=== PATIENT | male | born 1950 | race Caucasian/White ===

== ENCOUNTER → 2020-07-25 10:54 | Outpatient (BNVA) | payer MEDICARE, OTHER, SELFPAY | PROVIDERS: PCP Internal Medicine; Visit Provider Hospitalist | DX: G12.21 Amyotrophic lateral sclerosis (principal); J96.10 Chronic respiratory failure, unspecified whether with hypoxia or hypercapnia; J98.4 Other disorders of lung; G70.9 Myoneural disorder, unspecified | CPT/HCPCS: 99212 ==

== ENCOUNTER 2020-09-12 06:13 | Outpatient (REF) | payer MEDICARE, OTHER, SELFPAY ==
[2020-09-12 07:06] LABS: MANUAL DIFF FLAG NO
[2020-09-12 07:11] LABS: Basophils Absolute Auto 0.1 X10*3/uL (0.0-0.2); Basophils Percent Auto 0.6 % (0-2); Hemoglobin 13.7 g/dl (14.0-18.0); Imm Gran Abs Auto 0.04 X10*3/uL (0.00-0.03); Imm Gran Pct Auto 0.4 % (0.0-0.4); Lymphocytes Absolute Auto 2.5 X10*3/uL (1.2-4.9); Lymphocytes Percent Auto 25.8 % (20-40); Mean Corpuscular HGB Conc 31.1 g/dl (31.0-36.0); Mean Corpuscular Hemoglobin 29.5 pg (27.0-33.0); Mean Corpuscular Volume 94.8 fL (80-98); Mean Platelet Volume 10.3 fL (9.4-12.4); Monocytes Percent Auto 10.7 % (2-11); Neutrophils Absolute Auto 6.1 X10*3/uL (2.0-8.3); Neutrophils Percent Auto 62.5 % (45-73); Platelet Count 296 X10*3/uL (160-400); Red Blood Count 4.64 X10*6/uL (4.60-5.80); Red Cell Distribution Width 13.7 % (11.0-16.0); White Blood Count 9.7 X10*3/uL (4.8-10.8)
[2020-09-12 07:16] LABS: Glucose Urine UA NEG (NEG); Leukocyte Esterase Urine NEG (NEG); Nitrite Urine NEG (NEG); PH 5.5 (5.0-8.0); Specific Gravity - Urine 1.025 (1.005-1.025); Urine Blood NEG (NEG); Urine Ketones NEG (NEG); Urine Protein NEG (NEG-TRACE)
[2020-09-12 07:19] LABS: Appearance Urine CLEAR; Color Urine YELLOW
[2020-09-12 07:27] LABS: Mucus Urine 2+ /LPF; RBC Urine 0 /HPF (0); Squamous Epithelial Cell Urine 1+ /LPF; WBC Urine 0 /HPF (0-4)
[2020-09-12 07:28] LABS: Alanine Aminotransferase 28 U/L (0-40); Albumin Level 4.3 g/dL (3.5-5.0); Alkaline Phosphatase 80 U/L (39-117); Anion Gap 14 (12-20); Aspartate Amino Transferase 19 U/L (5-37); Blood Urea Nitrogen 14 mg/dL (9-16); Calcium 9.2 mg/dL (8.4-10.2); Carbon Dioxide 28 mmol/L (22-29); Chloride 103 mmol/L (96-108); Cholesterol 127 mg/dL; Estimated Glomerular Filt Rate > 60; Glucose Fasting 108 mg/dL (60-99); HDL Cholesterol 35 mg/dL; LDL Cholesterol Calculated 61 mg/dl; Potassium 4.4 mmol/l (3.3-5.1); Sodium 141 mmol/L (135-145); Total Protein 7.3 g/dL (6.5-8.0); Triglycerides 158 mg/dL
[2020-09-12 07:33] LABS: Creatinine Urine 85.75 mg/dL; Microalbum/Creatinine Ratio Ur 10.4 ug/mg cr
[2020-09-12 07:50] LABS: TSH reflex Free T4 2.06 mIU/mL (0.32-4.0)
[2020-09-12 07:54] LABS: Estimated Average Glucose 120 mg/dL; Hemoglobin A1c % 5.8 %
== END 2020-09-12 06:14 | disposition home or self-care (01) ==
LOC: HO.LAB 06:13
PROVIDERS: Visit Provider Internal Medicine
DX: E11.9 Type 2 diabetes mellitus without complications (principal); I10 Essential (primary) hypertension; E78.5 Hyperlipidemia, unspecified; I25.10 Atherosclerotic heart disease of native coronary artery without angina pectoris; G12.21 Amyotrophic lateral sclerosis; E66.9 Obesity, unspecified
CPT/HCPCS: 36415; 80053; 80061; 81001; 82043; 83036; 84443; 85025

== ENCOUNTER 2020-10-14 08:38 | Outpatient (REF) | payer MEDICARE, OTHER, SELFPAY ==
[2020-10-14 09:21] VITALS: O2SAT 95
[2020-10-14 09:26] LABS: Pt Ventilation O2% ROOM AIR
[2020-10-14 09:30] LABS: ABG PCO2 39 mmHg (32-45); Base Excess ABG -0.1; HCO3 ABG 24 mmol/L (22-26); PO2 ABG 75 mmHg (83-108)
--- NOTE | 2020-10-14 17:41 | PFT_ITS ---
Forced vital capacity and FEV1 are both moderately reduced. FDH48-28 is normal. MVV moderately reduced. Post bronchodilator therapy, there is no significant change. Total lung capacity and residual volume are both moderately reduced. Diffusion capacity is markedly decreased. CONCLUSION: There is no evidence of any significant obstructive airway disorder. There is evidence for moderately severe restrictive pulmonary disorder. Clinical correlation is recommended. MD ADELAIDE Lainez/MODL / [phone]
== END 2020-10-14 08:39 | disposition home or self-care (01) ==
LOC: HO.RESP 08:38
PROVIDERS: PCP Internal Medicine; Visit Provider Hospitalist
DX: J43.2 Centrilobular emphysema (principal); G12.21 Amyotrophic lateral sclerosis; J96.11 Chronic respiratory failure with hypoxia; J98.4 Other disorders of lung; G70.9 Myoneural disorder, unspecified
CPT/HCPCS: 36600; 82803; 94060; 94727; 94729; 99212

== ENCOUNTER → 2021-01-05 09:37 | Outpatient (BNVA) | payer MEDICARE, OTHER, SELFPAY | PROVIDERS: PCP Internal Medicine; Visit Provider Hospitalist | DX: G12.21 Amyotrophic lateral sclerosis (principal); J96.11 Chronic respiratory failure with hypoxia; J98.4 Other disorders of lung; G70.9 Myoneural disorder, unspecified | CPT/HCPCS: 99212 ==

== ENCOUNTER 2021-01-11 08:13 | Outpatient (REF) | payer MEDICARE, OTHER, SELFPAY ==
[2021-01-11 10:13] LABS: MANUAL DIFF FLAG NO
[2021-01-11 10:19] LABS: Basophils Percent Auto 0.6 % (0-2); Hematocrit 41.5 % (42-52); Hemoglobin 13.3 g/dl (14.0-18.0); Imm Gran Abs Auto 0.03 X10*3/uL (0.00-0.03); Imm Gran Pct Auto 0.4 % (0.0-0.4); Lymphocytes Absolute Auto 1.7 X10*3/uL (1.2-4.9); Lymphocytes Percent Auto 24.1 % (20-40); Mean Corpuscular Hemoglobin 30.2 pg (27.0-33.0); Mean Corpuscular Volume 94.3 fL (80-98); Mean Platelet Volume 10.5 fL (9.4-12.4); Monocytes Absolute Auto 0.8 X10*3/uL (0.1-1.2); Monocytes Percent Auto 11.5 % (2-11); Neutrophils Absolute Auto 4.4 X10*3/uL (2.0-8.3); Neutrophils Percent Auto 63.4 % (45-73); Platelet Count 260 X10*3/uL (160-400); Red Cell Distribution Width 13.6 % (11.0-16.0)
[2021-01-11 10:27] LABS: Estimated Average Glucose 111 mg/dL; Hemoglobin A1c % 5.5 %
[2021-01-11 10:32] LABS: Rheumatoid Factor < 15.0 IU/mL (<15.0)
[2021-01-11 10:43] LABS: Alanine Aminotransferase 39 U/L (0-40); Albumin Level 4.1 g/dL (3.5-5.0); Alkaline Phosphatase 79 U/L (39-117); Anion Gap 14 (12-20); Aspartate Amino Transferase 30 U/L (5-37); Blood Urea Nitrogen 15 mg/dL (9-16); Calcium 9.1 mg/dL (8.4-10.2); Carbon Dioxide 27 mmol/L (22-29); Chloride 102 mmol/L (96-108); Cholesterol 138 mg/dL; Estimated Glomerular Filt Rate > 60; Glucose Fasting 93 mg/dL (60-99); HDL Cholesterol 33 mg/dL; LDL Cholesterol Calculated 75 mg/dl; Potassium 4.4 mmol/L (3.3-5.1); Sodium 139 mmol/L (135-145); Total Protein 7.1 g/dL (6.5-8.0); Triglycerides 150 mg/dL
[2021-01-11 10:56] LABS: TSH reflex Free T4 1.28 uIU/mL (0.32-4.0)
[2021-01-11 11:27] LABS: Microalbum/Creatinine Ratio Ur 23.6 ug/mg cr
[2021-01-11 12:14] LABS: Vitamin B12 445 pg/mL (200-900)
[2021-01-12 13:47] LABS: Anti Nuclear Antibody Screen NEGATIVE (NEGATIVE)
[2021-01-12 18:37] LABS: Prot Elec - Albumin 3.7 g/dL (3.8-4.8); Prot Elec - Alpha1 0.4 g/dL (0.2-0.3); Prot Elec - Alpha2 0.9 g/dL (0.5-0.9); Prot Elec - Beta 1 0.5 g/dL (0.4-0.6); Prot Elec - Beta 2 0.5 g/dL (0.2-0.5); Prot Elec - Gamma 0.9 g/dL (0.8-1.7); Prot Elec - Total Protein 6.9 g/dL (6.1-8.1)
[2021-01-12 20:22] LABS: IgA 396 mg/dL (70-320); IgG 941 mg/dL (600-1540); IgM 33 mg/dL (50-300)
[2021-01-14 14:17] LABS: Vitamin B6 3.7 ng/mL (2.1-21.7)
[2021-01-17 15:12] LABS: Vitamin B1 10 nmol/L (8-30)
== END 2021-01-11 08:14 | disposition home or self-care (01) ==
LOC: HO.10HDL 08:13
PROVIDERS: Psychiatry & Neurology Neurology; Visit Provider Internal Medicine
DX: E78.00 Pure hypercholesterolemia, unspecified (principal); G12.21 Amyotrophic lateral sclerosis; R20.0 Anesthesia of skin; I10 Essential (primary) hypertension; I25.10 Atherosclerotic heart disease of native coronary artery without angina pectoris; E11.42 Type 2 diabetes mellitus with diabetic polyneuropathy; E66.9 Obesity, unspecified
CPT/HCPCS: 36415; 80053; 80061; 82043; 82607; 82784; 83036; 84155; 84165; 84207; 84425; 84443; 85025; 86038; 86039; 86334; 86431

== ENCOUNTER → 2021-05-01 10:25 | Outpatient (BNVA) | payer MEDICARE, OTHER, SELFPAY | PROVIDERS: PCP Internal Medicine; Visit Provider Hospitalist | DX: G12.21 Amyotrophic lateral sclerosis (principal); J96.11 Chronic respiratory failure with hypoxia; J98.4 Other disorders of lung; G70.9 Myoneural disorder, unspecified | CPT/HCPCS: 99212 ==

== ENCOUNTER 2021-05-11 07:35 | Outpatient (REF) | payer MEDICARE, OTHER, SELFPAY ==
[2021-05-11 09:54] LABS: MANUAL DIFF FLAG NO
[2021-05-11 10:09] LABS: Estimated Average Glucose 108 mg/dL; Hemoglobin A1c % 5.4 %
[2021-05-11 10:11] LABS: Basophils Absolute Auto 0.1 X10*3/uL (0.0-0.2); Basophils Percent Auto 0.6 % (0-2); Eosinophils Absolute Auto 0.2 X10*3/uL (0.0-0.4); Hematocrit 44.2 % (42-52); Imm Gran Abs Auto 0.03 X10*3/uL (0.00-0.03); Imm Gran Pct Auto 0.4 % (0.0-0.4); Lymphocytes Absolute Auto 2.2 X10*3/uL (1.2-4.9); Lymphocytes Percent Auto 27.3 % (20-40); Mean Corpuscular HGB Conc 31.7 g/dl (31.0-36.0); Mean Corpuscular Hemoglobin 30.3 pg (27.0-33.0); Mean Corpuscular Volume 95.7 fL (80-98); Monocytes Percent Auto 12.4 % (2-11); Neutrophils Absolute Auto 4.5 X10*3/uL (2.0-8.3); Neutrophils Percent Auto 57.3 % (45-73); Platelet Count 272 X10*3/uL (160-400); Red Blood Count 4.62 X10*6/uL (4.60-5.80); Red Cell Distribution Width 13.5 % (11.0-16.0); White Blood Count 7.9 X10*3/uL (4.8-10.8)
[2021-05-11 10:33] LABS: Appearance Urine CLEAR; Color Urine YELLOW; Glucose Urine UA NEG (NEG); Leukocyte Esterase Urine NEG (NEG); Nitrite Urine NEG (NEG); Specific Gravity - Urine >= 1.030 (1.005-1.025); UACC Culture Trigger NO; Urine Blood NEG (NEG); Urine Ketones NEG (NEG); Urine Protein 1+ MG/DL (NEG-TRACE)
[2021-05-11 10:38] LABS: Alanine Aminotransferase 40 U/L (0-40); Albumin Level 4.1 g/dL (3.5-5.0); Alkaline Phosphatase 71 U/L (39-117); Anion Gap 14 (12-20); Aspartate Amino Transferase 36 U/L (5-37); Bilirubin Total 0.9 mg/dL (0.0-1.0); Blood Urea Nitrogen 13 mg/dL (9-16); Calcium 9.3 mg/dL (8.4-10.2); Carbon Dioxide 28 mmol/L (22-29); Chloride 102 mmol/L (96-108); Cholesterol 125 mg/dL; Estimated Glomerular Filt Rate > 60; Glucose Fasting 97 mg/dL (60-99); HDL Cholesterol 37 mg/dL; LDL Cholesterol Calculated 68 mg/dl; Potassium 4.3 mmol/L (3.3-5.1); Sodium 140 mmol/L (135-145); Total Protein 7.2 g/dL (6.5-8.0); Triglycerides 102 mg/dL
[2021-05-11 10:43] LABS: Creatinine Urine 142.68 mg/dL; Microalbum/Creatinine Ratio Ur 109.3 ug/mg cr
[2021-05-11 11:01] LABS: TSH reflex Free T4 1.03 uIU/mL (0.32-4.0)
[2021-05-11 11:08] LABS: Folate 5.6 ng/mL (> or = 4.0); Vitamin B12 1358 pg/mL (200-900)
[2021-05-11 11:35] LABS: Squamous Epithelial Cell Urine 2+ /LPF
[2021-05-11 11:36] LABS: Mucus Urine 3+ /LPF
== END 2021-05-11 07:36 | disposition home or self-care (01) ==
LOC: HO.10HDL 07:35
PROVIDERS: Visit Provider Internal Medicine
DX: E11.42 Type 2 diabetes mellitus with diabetic polyneuropathy (principal); I10 Essential (primary) hypertension; I25.10 Atherosclerotic heart disease of native coronary artery without angina pectoris; E78.00 Pure hypercholesterolemia, unspecified; E66.9 Obesity, unspecified
CPT/HCPCS: 36415; 80053; 80061; 81001; 81003; 82043; 82607; 82746; 83036; 84443; 85025

== ENCOUNTER → 2021-07-25 10:40 | Outpatient (BNVA) | payer MEDICARE, OTHER, SELFPAY | PROVIDERS: PCP Internal Medicine; Visit Provider Hospitalist | DX: G12.21 Amyotrophic lateral sclerosis (principal); J96.11 Chronic respiratory failure with hypoxia; J98.4 Other disorders of lung; G70.9 Myoneural disorder, unspecified | CPT/HCPCS: 99212 ==

== ENCOUNTER 2021-09-21 09:03 | Outpatient (REF) | payer MEDICARE, OTHER, SELFPAY ==
[2021-09-21 10:34] LABS: Appearance Urine HAZY; Color Urine YELLOW; Glucose Urine UA NEG (NEG); Leukocyte Esterase Urine NEG (NEG); Nitrite Urine NEG (NEG); Specific Gravity - Urine 1.025 (1.005-1.025); Urine Blood NEG (NEG); Urine Ketones NEG (NEG); Urine Protein NEG (NEG-TRACE)
[2021-09-21 10:35] LABS: MANUAL DIFF FLAG NO
[2021-09-21 10:43] LABS: Basophils Percent Auto 0.5 % (0-2); Hematocrit 44.8 % (42.0-52.0); Imm Gran Abs Auto 0.03 X10*3/uL (0.00-0.03); Imm Gran Pct Auto 0.4 % (0.0-0.4); Lymphocytes Absolute Auto 2.1 X10*3/uL (1.2-4.9); Lymphocytes Percent Auto 24.7 % (20-40); Mean Corpuscular HGB Conc 31.3 g/dl (31.0-36.0); Mean Corpuscular Hemoglobin 30.6 pg (27.0-33.0); Mean Corpuscular Volume 97.8 fL (80.0-98.0); Mean Platelet Volume 11.2 fL (9.4-12.4); Monocytes Absolute Auto 1.1 X10*3/uL (0.1-1.2); Neutrophils Absolute Auto 5.3 x10*3/uL (2.0-8.3); Neutrophils Percent Auto 61.4 % (45-73); Platelet Count 248 X10*3/uL (160-400); Red Blood Count 4.58 X10*6/uL (4.60-5.80); White Blood Count 8.6 X10*3/uL (4.8-10.8)
[2021-09-21 10:48] LABS: Estimated Average Glucose 105 mg/dL; Hemoglobin A1c % 5.3 %
[2021-09-21 11:00] LABS: Creatinine Urine 87.93 mg/dL; Microalbum/Creatinine Ratio Ur 18.1 ug/mg cr
[2021-09-21 11:11] LABS: Alanine Aminotransferase 42 U/L (0-40); Albumin Level 4.1 g/dL (3.5-5.0); Alkaline Phosphatase 70 U/L (39-117); Anion Gap 13 (12-20); Aspartate Amino Transferase 31 U/L (5-37); Bilirubin Total 0.7 mg/dL (0.0-1.0); Blood Urea Nitrogen 17 mg/dL (9-16); Calcium 9.5 mg/dL (8.4-10.2); Carbon Dioxide 29 mmol/L (22-29); Chloride 105 mmol/L (96-108); Cholesterol 121 mg/dL; Estimated Glomerular Filt Rate > 60; Glucose Fasting 87 mg/dL (60-99); HDL Cholesterol 39 mg/dL; LDL Cholesterol Calculated 61 mg/dl; Potassium 4.5 mmol/L (3.3-5.1); Sodium 142 mmol/L (135-145); Triglycerides 105 mg/dL
[2021-09-21 11:33] LABS: TSH reflex Free T4 1.14 uIU/mL (0.32-4.0); Vitamin D 25-OH Total 31.1 ng/mL (>30)
== END 2021-09-21 09:04 | disposition home or self-care (01) ==
LOC: HO.10HDL 09:03
PROVIDERS: Absent Provider Psychiatry & Neurology Neurology; Visit Provider Internal Medicine
DX: E11.42 Type 2 diabetes mellitus with diabetic polyneuropathy (principal); I10 Essential (primary) hypertension; E55.9 Vitamin D deficiency, unspecified; E78.00 Pure hypercholesterolemia, unspecified
CPT/HCPCS: 36415; 80053; 80061; 81003; 82043; 82306; 83036; 84443; 85025

== ENCOUNTER 2021-10-24 09:26 | Outpatient (REF) | payer MEDICARE, OTHER, SELFPAY ==
--- NOTE | ~2021-10-24 | XR_ITS ---
EXAMINATION: XR CHEST CLINICAL INFORMATION: This is a 71-year-old male with ALS. COMPARISON: None TECHNIQUE: 2 views of the chest were obtained. The patient was unable to hold his head upright. This obscures some of the detail in the upper chest. FINDINGS: There is minimal thickening of the minor fissure on the right which may represent a small amount of fluid present. There are linear changes in the left lower lobe which may represent atelectasis versus subsegmental pneumonitis. No large pleural effusions are seen. Degenerative disc disease changes are noted throughout the thoracic spine. The patient is status post median sternotomy. There is no pneumothorax. XR/XR chest 2V IMPRESSION: 1. There is left lower lobe atelectasis versus subsegmental pneumonitis.
== END 2021-10-24 09:27 | disposition home or self-care (01) ==
LOC: HO.XRAY 09:26
PROVIDERS: PCP Internal Medicine; Visit Provider Hospitalist
DX: J96.11 Chronic respiratory failure with hypoxia (principal); J98.4 Other disorders of lung; G12.21 Amyotrophic lateral sclerosis; I10 Essential (primary) hypertension; G70.9 Myoneural disorder, unspecified
CPT/HCPCS: 71046; 99212

== ENCOUNTER 2021-11-16 09:15 | Outpatient (REF) | payer MEDICARE, OTHER, SELFPAY ==
[2021-11-16 11:35] LABS: Appearance Urine HAZY; Color Urine YELLOW; Glucose Urine UA NEG (NEG); Leukocyte Esterase Urine NEG (NEG); Nitrite Urine NEG (NEG); PH 5.5 (5.0-8.0); Specific Gravity - Urine >= 1.030 (1.005-1.025); Urine Blood NEG (NEG); Urine Ketones NEG (NEG); Urine Protein NEG (NEG-TRACE)
== END 2021-11-16 09:16 | disposition home or self-care (01) ==
LOC: HO.LAB 09:15
PROVIDERS: PCP Internal Medicine; Visit Provider Internal Medicine
DX: R30.0 Dysuria (principal)
CPT/HCPCS: 81003

== ENCOUNTER 2021-11-21 10:25 | Outpatient (REF) | payer MEDICARE, OTHER, SELFPAY ==
[2021-11-21 17:26] LABS: Appearance Urine CLEAR; Color Urine YELLOW; Glucose Urine UA NEG (NEG); Leukocyte Esterase Urine NEG (NEG); Nitrite Urine NEG (NEG); PH 5.5 (5.0-8.0); Specific Gravity - Urine >= 1.030 (1.005-1.025); Urine Blood NEG (NEG); Urine Ketones NEG (NEG); Urine Protein NEG (NEG-TRACE)
== END 2021-11-21 10:26 | disposition home or self-care (01) ==
LOC: HO.LAB 10:25
PROVIDERS: Visit Provider Nurse Practitioner Acute Care
DX: R35.89 Other polyuria (principal)
CPT/HCPCS: 81003

== ENCOUNTER 2021-12-29 07:19 | Outpatient (REF) | payer MEDICARE, OTHER, SELFPAY ==
--- NOTE | ~2021-12-29 | US_ITS ---
EXAMINATION: US RETROPERITONEAL LIMITED (RENAL ONLY) CLINICAL INFORMATION: Unspecified abdominal pain. COMPARISON: None TECHNIQUE: Multiple 2-D grayscale and Doppler ultrasound images of the kidneys were obtained. FINDINGS: RIGHT KIDNEY: 10.6 x 5.9 x 6.4 cm (SAG x AP x TRV). The kidney is normal in size, contour, and echogenicity. Renal cortical thickness is normal. No calculi or focal parenchymal lesions. No hydronephrosis. LEFT KIDNEY: 11.2 x 5.8 x 6.5 cm (SAG x AP x TRV). The kidney is normal in size, contour, and echogenicity. Renal cortical thickness is normal. No calculi or focal parenchymal lesions. No hydronephrosis. US/US renal BI IMPRESSION: No significant renal abnormality.
== END 2021-12-29 07:20 | disposition home or self-care (01) ==
LOC: HO.US 07:19
PROVIDERS: Visit Provider Nurse Practitioner Acute Care
DX: R10.9 Unspecified abdominal pain (principal)
CPT/HCPCS: 76775

== ENCOUNTER 2022-01-16 10:27 | Outpatient (REF) | payer MEDICARE, OTHER, SELFPAY ==
--- NOTE | ~2022-01-16 | XR_ITS ---
EXAMINATION: XR CHEST CLINICAL INFORMATION: Follow-up left lower lobe atelectasis versus infiltrate. COMPARISON: Chest radiograph dated 12/22/2021. TECHNIQUE: Frontal and lateral views of the chest were obtained. On the frontal view, the head overlaps the medial apices, limiting evaluation. FINDINGS: There is stable cardiomegaly. There has been a prior CABG procedure. There is stable mild elevation of the right hemidiaphragm. No infiltrate, effusion or pneumothorax is seen. There is no acute osseous abnormality. XR/XR chest 2V IMPRESSION: No active cardiopulmonary disease. There is stable mild elevation of the right hemidiaphragm.
[2022-01-16 10:49] LABS: MANUAL DIFF FLAG NO
[2022-01-16 11:07] LABS: Basophils Percent Auto 0.4 % (0-2); Hematocrit 42.6 % (42.0-52.0); Hemoglobin 13.1 g/dl (14.0-18.0); Imm Gran Abs Auto 0.03 X10*3/uL (0.00-0.03); Imm Gran Pct Auto 0.4 % (0.0-0.4); Lymphocytes Percent Auto 24.5 % (20-40); Mean Corpuscular HGB Conc 30.8 g/dl (31.0-36.0); Mean Corpuscular Hemoglobin 30.3 pg (27.0-33.0); Mean Corpuscular Volume 98.6 fL (80.0-98.0); Mean Platelet Volume 11.1 fL (9.4-12.4); Monocytes Percent Auto 12.3 % (2-11); Neutrophils Absolute Auto 5.1 x10*3/uL (2.0-8.3); Neutrophils Percent Auto 62.4 % (45-73); Platelet Count 235 X10*3/uL (160-400); Red Blood Count 4.32 X10*6/uL (4.60-5.80); Red Cell Distribution Width 13.5 % (11.0-16.0); White Blood Count 8.1 X10*3/uL (4.8-10.8)
[2022-01-16 11:25] LABS: Estimated Average Glucose 100 mg/dL; Hemoglobin A1c % 5.1 %
[2022-01-16 11:27] LABS: Alanine Aminotransferase 60 U/L (0-40); Albumin Level 3.9 g/dL (3.5-5.0); Alkaline Phosphatase 77 U/L (39-117); Anion Gap 13 (12-20); Aspartate Amino Transferase 39 U/L (5-37); Bilirubin Total 0.6 mg/dL (0.0-1.0); Blood Urea Nitrogen 16 mg/dL (9-16); Calcium 9.5 mg/dL (8.4-10.2); Carbon Dioxide 29 mmol/L (22-29); Chloride 106 mmol/L (96-108); Cholesterol 117 mg/dL; Estimated Glomerular Filt Rate > 60; Glucose Fasting 102 mg/dL (60-99); HDL Cholesterol 41 mg/dL; LDL Cholesterol Calculated 59 mg/dl; Potassium 4.8 mmol/L (3.3-5.1); Sodium 143 mmol/L (135-145); Total Protein 6.7 g/dL (6.5-8.0); Triglycerides 88 mg/dL
[2022-01-16 11:28] LABS: Appearance Urine HAZY; Color Urine DK YELLOW; Glucose Urine UA NEG (NEG); Leukocyte Esterase Urine NEG (NEG); Nitrite Urine NEG (NEG); Specific Gravity - Urine >= 1.030 (1.005-1.025); UACC Culture Trigger NO; Urine Blood NEG (NEG); Urine Ketones 5 MG/DL (NEG); Urine Protein 1+ MG/DL (NEG-TRACE)
[2022-01-16 11:49] LABS: TSH reflex Free T4 0.94 uIU/mL (0.32-4.0); Vitamin D 25-OH Total 30.1 ng/mL (>30)
[2022-01-16 12:00] LABS: Hyaline Casts Urine 0-2 /LPF
[2022-01-16 12:01] LABS: Calcium Oxalate Crystals Urine 1+ /LPF
[2022-01-16 12:02] LABS: Microalbum/Creatinine Ratio Ur 21.5 ug/mg cr; RBC Urine 0 /HPF (0); Squamous Epithelial Cell Urine TRACE /LPF
[2022-01-16 12:03] LABS: Bacteria Urine TRACE /LPF; Mucus Urine TRACE /LPF; WBC Urine 0-2 /HPF (0-4)
== END 2022-01-16 10:28 | disposition home or self-care (01) ==
LOC: HO.XRAY 10:27
PROVIDERS: PCP Internal Medicine; Referring Provider Internal Medicine; Visit Provider Hospitalist
DX: I10 Essential (primary) hypertension (principal); E11.9 Type 2 diabetes mellitus without complications; E55.9 Vitamin D deficiency, unspecified; R93.89 Abnormal findings on diagnostic imaging of other specified body structures; E78.00 Pure hypercholesterolemia, unspecified
CPT/HCPCS: 36415; 71046; 80053; 80061; 81001; 82043; 82306; 83036; 84443; 85025

== ENCOUNTER 2022-01-23 10:17 | Outpatient (REF) | payer MEDICARE, OTHER, SELFPAY ==
[2022-01-23 11:26] LABS: Venous Blood Gas Refer to POC result
[2022-01-23 11:27] LABS: VBG Base Excess 3.3 mmol/L; VBG HCO3 28 mmol/L (22-26); VBG pCO2 44 mmHg; VBG pO2 60 mmHg
[2022-01-23 12:19] LABS: VBG Base Excess 3.3 mmol/L; VBG HCO3 28 mmol/L (22-26); VBG pCO2 44 mmHg; VBG pO2 60 mmHg
== END 2022-01-23 10:18 | disposition home or self-care (01) ==
LOC: HO.LAB 10:17
PROVIDERS: PCP Internal Medicine; Visit Provider Hospitalist
DX: J96.11 Chronic respiratory failure with hypoxia (principal); J98.4 Other disorders of lung; G12.21 Amyotrophic lateral sclerosis; I10 Essential (primary) hypertension; I89.0 Lymphedema, not elsewhere classified
CPT/HCPCS: 36415; 82803; 94010; 99212

== ENCOUNTER → 2022-04-24 10:34 | Outpatient (BNVA) | payer MEDICARE, OTHER, SELFPAY | PROVIDERS: PCP Internal Medicine; Visit Provider Hospitalist | DX: G12.21 Amyotrophic lateral sclerosis (principal); J96.11 Chronic respiratory failure with hypoxia; J98.4 Other disorders of lung; G70.9 Myoneural disorder, unspecified; R09.89 Other specified symptoms and signs involving the circulatory and respiratory systems | CPT/HCPCS: 94010; 99212 ==

== ENCOUNTER 2022-05-24 10:12 | Outpatient (REF) | payer MEDICARE, OTHER, SELFPAY ==
[2022-05-24 10:51] LABS: MANUAL DIFF FLAG NO
[2022-05-24 12:18] LABS: Basophils Percent Auto 0.4 % (0-2); Hematocrit 43.8 % (42.0-52.0); Hemoglobin 13.8 g/dl (14.0-18.0); Imm Gran Abs Auto 0.03 X10*3/uL (0.00-0.03); Imm Gran Pct Auto 0.4 % (0.0-0.4); Lymphocytes Absolute Auto 1.8 X10*3/uL (1.2-4.9); Lymphocytes Percent Auto 25.3 % (20-40); Mean Corpuscular HGB Conc 31.5 g/dl (31.0-36.0); Mean Corpuscular Hemoglobin 30.3 pg (27.0-33.0); Mean Corpuscular Volume 96.3 fL (80.0-98.0); Mean Platelet Volume 11.6 fL (9.4-12.4); Monocytes Absolute Auto 0.8 X10*3/uL (0.1-1.2); Monocytes Percent Auto 12.1 % (2-11); Neutrophils Absolute Auto 4.3 x10*3/uL (2.0-8.3); Neutrophils Percent Auto 61.8 % (45-73); Platelet Count 223 X10*3/uL (160-400); Red Blood Count 4.55 X10*6/uL (4.60-5.80); Red Cell Distribution Width 13.6 % (11.0-16.0)
[2022-05-24 12:24] LABS: Estimated Average Glucose 108 mg/dL; Hemoglobin A1C 134.6655 umol/L; Hemoglobin A1c % 5.4 %
[2022-05-24 13:06] LABS: Appearance Urine Clear; Color Urine Yellow; Glucose Urine UA Negative (Negative); Leukocyte Esterase Urine Negative (Negative); Nitrite Urine Negative (Negative); Urine Blood Negative (Negative); Urine Ketones Negative (Negative); Urine Protein Negative (Neg-Trace)
[2022-05-24 13:11] LABS: Alanine Aminotransferase 41 U/L (0-40); Albumin Level 4.1 g/dL (3.5-5.0); Alkaline Phosphatase 77 U/L (39-117); Anion Gap 17 (12-20); Aspartate Amino Transferase 26 U/L (5-37); Bilirubin Total 0.7 mg/dL (0.0-1.0); Blood Urea Nitrogen 18 mg/dL (9-16); Calcium 9.3 mg/dL (8.4-10.2); Carbon Dioxide 25 mmol/L (22-29); Chloride 103 mmol/L (96-108); Cholesterol 181 mg/dL; Estimated Glomerular Filt Rate > 60; Glucose Fasting 80 mg/dL (60-99); HDL Cholesterol 42 mg/dL; LDL Cholesterol Calculated 100 mg/dl; Potassium 4.4 mmol/L (3.3-5.1); Sodium 141 mmol/L (135-145); Total Protein 7.2 g/dL (6.5-8.0); Triglycerides 195 mg/dL
[2022-05-24 13:17] LABS: TSH reflex Free T4 1.28 uIU/mL (0.32-4.0); Vitamin D 25-OH Total 39.7 ng/mL (>30)
[2022-05-24 13:36] LABS: Microalbum/Creatinine Ratio Ur 14.8 ug/mg cr
== END 2022-05-24 10:13 | disposition home or self-care (01) ==
LOC: HO.LAB 10:12
PROVIDERS: Absent Provider Hospitalist; PCP Internal Medicine; Visit Provider Internal Medicine
DX: E78.00 Pure hypercholesterolemia, unspecified (principal); E11.9 Type 2 diabetes mellitus without complications; E55.9 Vitamin D deficiency, unspecified; I10 Essential (primary) hypertension
CPT/HCPCS: 36415; 80053; 80061; 81003; 82043; 82306; 83036; 84443; 85025

== ENCOUNTER 2022-05-30 14:04 | Outpatient (REF) | payer MEDICARE, OTHER, SELFPAY ==
--- NOTE | ~2022-05-30 | FL_ITS ---
EXAMINATION: XR BARIUM SWALLOW CLINICAL INFORMATION: Amyotrophic lateral sclerosis COMPARISON: None TECHNIQUE: Fluoroscopic guidance was provided for modified barium swallow performed by the speech and hearing department. The patient was administered various liquid barium and food mixed with barium. FINDINGS: There is retention in the vallecula and piriform sinuses with all media. No aspiration or penetration is seen. FLUOROSCOPY TIME: 1.8 minutes DOSE AREA PRODUCT: 2 Clemente per centimeter squared. FL/FL barium swallow modified IMPRESSION: Fluoroscopy guidance for modified barium swallow.
--- NOTE | 2022-06-05 09:44 | MHC.SL.IMP ---
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 Thoracic spondylosis Type 2 diabetes mellitus with diabetic polyneuropathy Surgical History History of bilateral cataract extraction History of cardiac catheterization History of prostatectomy S/P CABG x 4 S/P percutaneous endoscopic gastrostomy (PEG) tube placement (~06/17/20) Status post surgical removal of malignant neoplasm of skin Primary Speech & Language Diagnosis: R13.12 Oropharyngeal Phase Dysphagia Reason for Today's Visit: 85346 Modified Barium Swallow Study Pre-evaluation Dietary Consistencies: Regular Pre-evaluation Liquid Consistency: Thin Pre-evaluation Medication Administration: Whole with Liquid Medical History: [place], [place] Modified Barium Swallow Study Fluoroscopic Evaluation of Swallowing Function CPT Code 30677 Evaluation Year: 2021 Reason for Study: Patient reports globus sensation. Referring Physician: Manny Akhtar M.D. Evaluating Clinician: Alley Fernandez MA, CCC-SUPERVISOR [employer] Study Number: 1 Patient Name: Edwin Benson Status: Wheelchair Age: 71 Gender: Male MEDICAL HISTORY: Primary (admitting) Diagnosis: ALS (amyotrophic lateral sclerosis) Medical History Anxiety Benign essential hypertension Bibasilar crackles Chronic respiratory failure Coronary artery disease Depression Diabetes mellitus Insomnia Low back pain Lumbar degenerative disc disease Lymphedema Obesity (BMI 30-39.9) Overweight (BMI 25.0-29.9) Pure hypercholesterolemia Restrictive lung mechanics due to neuromuscular disease Spondylosis of thoracolumbar spine Thoracic spondylosis Type 2 diabetes mellitus with diabetic polyneuropathy Surgical History History of bilateral cataract extraction History of cardiac catheterization History of prostatectomy S/P CABG x 4 S/P percutaneous endoscopic gastrostomy (PEG) tube placement (~06/17/20) Status post surgical removal of malignant neoplasm of skin Current (pre-evaluation) Intake/Diet: Route: PO Diet Grade: Regular Liquid Consistencies: Thin Pre-Study Functional Oral Intake Scale (FOIS): 7- Total oral intake with no restrictions Pain: None reported at time of study SUBJECTIVE: Pt is a 71 year old male with underlying ALS referred for a modified barium swallow study (MBSS) by Manny Akhtar MD of [facility]. Pt was accompanied to this exam by his . Pt reports that at times food will feel stuck in his throat. He reported that this seems to occur ?at random? with ?all different kinds of food.? Pt reports he must drink liquids to help it go down. He stated, ?After a while my throat gets tired so I stop.? Pt denies globus sensation with liquids. Pt denies coughing and choking, but mentioned he coughs up phlegm at times. Pt reported he had MBSS done twice before and that the ?results were fine.? When arriving for this exam, pt was wearing a neck brace. Pt reported that this brace supports his neck as he exhibits difficulty holding his head up on his own. Pt reported he reclines in his chair when he is resting, but is not reclined during meals. Pt reported he eats without his neck brace because it impedes on his jaw excursion and on his ability to chew. Pt reports that when he eats at home, he is seated upright in a chair and that his head leans forward in a chin tuck position due to this weakness. He reports he is fed by his during meals. Oral Motor Exam Facial Symmetry: Symmetrical Mouth Occlusion: Normal Oral-Facial Teeth Characteristics: Partially Missing Oral-Facial Smile (Lips) Description: Normal Oral-Facial Puff Cheeks Description: Normal Tongue Size: Normal Tongue Excursion Description: Normal Tongue Range of Movement Description: Normal Tongue Speed of Movement Description: Normal Tongue Strength of Movement (against opposing pressure): Normal Tongue Movement Characteristics: Fasciculations Is patient able to manage secretions?: Yes Food and Liquid Trials: Oral Impairment: Lip Closure: 0=No labial escape Oral Impairment: Tongue Control During Bolus Hold: 0=Cohesive bolus between tongue to palatal seal Oral Impairment: Bolus Preparation/Mastication: 1=Slow prolonged chewing/mashing with complete re-collection Oral Impairment: Bolus Transport/Lingual Motion: 0=Brisk tongue motion Oral Impairment: Oral Residue: 1=Trace residue lining oral structures Oral Impairment:Initiation of Pharyngeal Swallow: 1=Bolus head in valleculae Pharyngeal Impairment: Soft Palate Elevation: 0=No bolus between soft palate (SP)/pharyngeal wall (PW) Pharyngeal Impairment: Laryngeal Elevation: 1=Partial thyroid cartilage/arytenoids to epiglottic petiole movement Pharyngeal Impairment: Anterior Hyoid Excursion: 1=Partial anterior movement Pharyngeal Impairment: Epiglottic Movement: 0=Complete inversion Pharyngeal Impairment: Laryngeal Vestibular Closure:: 0=Complete: no air/contrast in laryngeal vestibule Pharyngeal Impairment: Pharyngeal Stripping Wave: 1=Present: diminished Pharyngeal Impairment: Pharyngeal Contraction: Did not test Pharyngeal Impairment: Pharyngoesophageal Segment Opening: Did not test Pharyngeal Impairment: Tongue Base (TB) Retraction: 1=Trace column of contrast/air between TB and posterior PW Pharyngeal Impairment: Pharyngeal Residue: 2=Collection of residue within or on pharyngeal structures Pharyngeal Impairment: Esophageal Clearance Upright Position: Did not test Impressions and Recommendations Clinical Observations: OBJECTIVE: Time-out: performed at 02:45 Evaluation Start: 02:30; Stop: 02:40 Patient Positioning: Seated 70-90 degrees Viewing Planes: LATERAL ONLY Contrast: MBSImP? Standardized Protocol using commercially prepared, standardized Barium viscosities, including: Varibar? THIN LIQUID (40% w/v, <15 cps) , 1/2 Shortbread Cookie (1 x1 x.25 ) MBSImP ID: [id number] MBSImP Results: Lip closure for intraoral bolus containment resulted in no labial escape. Tongue control during bolus hold maintained a cohesive bolus held between tongue to palate seal. Bolus preparation and mastication resulted in slow, prolonged chewing/mashing but with complete re-collection. Bolus transport/lingual motion was with brisk tongue motion. Oral residue was a trace, lining oral structures. Initiation of the pharyngeal swallow occurred when the bolus head was in the valleculae. Soft palate elevation resulted in no bolus between the soft palate and the pharyngeal wall. Laryngeal elevation was decreased, with partial superior movement of the thyroid cartilage/partial approximation of the arytenoids to the epiglottic petiole. Anterior hyoid excursion demonstrated partial anterior movement. Epiglottic movement resulted in complete inversion. Laryngeal vestibular closure was complete, as indicated by no air or contrast within the laryngeal vestibule at the height of the swallow. Pharyngeal stripping wave was present, but diminished. Pharyngeal contraction could not be determined due to logistical reasons not related to physiologic impairment. Pharyngoesophageal segment opening could not be assessed due to logistical reasons not related to physiologic impairment. Tongue base retraction allowed a trace column of contrast or air between the retracted tongue base and the posterior pharyngeal wall. Pharyngeal residue was a collection of residue within or on pharyngeal structures. Esophageal clearance in the upright position could not be assessed due to logistical reasons not related to physiologic impairment. Oral Impairment Score: 2 Pharyngeal Impairment Score: 5 (absence of score, component 13component 14) Esophageal Impairment Score: --- (absence of score, component 17) Laryngeal Penetration and Aspiration: Neither penetration nor aspiration was observed in today's study with Cookie, Thin. ASSESSMENT: Clinician Assessment: This exam was conducted by a multidisciplinary team, which included a speech pathologist, radiologist, and fisheries technician. Pt was sitting in a chair, positioned upright at 90 degree angle, pt?s head position close to a chin tuck. SUPERVISOR [employer] provided assistance feeding during our exam today. Pt trialed the following liquid and solid consistencies: thin liquid barium by straw (with bolus hold), pureed solid (mixture applesauce with barium paste), ground solid (mixture chicken salad with barium paste), and regular solid (Maame Doone cookie coated with barium paste). Pt displayed good lip closure. There was no labial escape with no anterior loss of bolus. Pt demonstrated good tongue control, maintaining a cohesive bolus between tongue to palatal seal. Mastication was mildly slowed and prolonged, characterized by piece meal deglutition pattern. Pt chewed bolus, swallowed partial bolus, chewed remaining bolus, and swallowed again to clear oral cavity. Trace oral residue cleared with subsequent swallow. Pt displayed brisk posterior lingual movement for transport of bolus. Pharyngeal swallow trigger initiated as bolus head reached valleculae. There was no nasopharyngeal reflux. Laryngeal elevation was incomplete, with incomplete anterior hyoid excursion. There was complete epiglottic inversion and complete laryngeal vestibular closure. No evidence of aspiration or penetration with intake of liquids and solids during this exam. With consumption of pureed consistency and thin liquid, there was complete pharyngeal clearance. When pt took bite of chicken, there was mild residue in the valleculae and on the posterior pharyngeal wall, which reduced with multiple swallows. Increased pharyngeal residue with regular consistency. There was significant retention in the valleculae and pyriform sinuses and on the tongue base with bite of shortbread cookie. Pt was able to reduce residuals with multiple dry swallows and sips of thin liquids. Liquid Intake Recommendation: Thin Liquid Intake Strategies: Small Sips Dietary Recommendations: Grnd/Mech Altered (NDD2) Medication Administration: Whole with Liquid Please contact the pharmacy regarding appropriate crushable or liquid drug formulations that are available whenever modified delivery is recommended. Compensatory Strategies Recommended: Sitting Upright (90 deg) Double Swallow Small Bites and Sips Alternate Liquids/Solids Rate of Ingestion Change Avoid Specific Foods Supervision during eating and or drinking: Total Assistance (1:1) Recommended Treatments: Compens. Strategy Educat. Recommendation for Speech Therapy: Outpatient Speech Therapy PLAN: Intake Recommendations: Route: PO Diet Grade: Mechanical Soft Liquid Consistencies: Post-Study Functional Oral Intake Scale (FOIS): 5- Total oral intake of multiple consistencies requiring special preparation Based on these objective results recommend GROUND/MECH ALTERED (NDD2) DIET for ease of mastication and to promote oral and pharyngeal clearance, THIN LIQUID. Pt requires total 1:1 assistance feeding. Recommended strategies and precautions include: -Take small sips of liquid, one sip at a time -One bite at a time -Double swallow after each bite -Follow bites with sips of liquid as needed -Clear oral cavity before taking more bites -Moisten food with sauces and gravies to promote clearance -Avoid certain foods: hard or tough to chew solids; mixed consistencies (i.e. cereal) Recommend 1 follow-up visit for further education regarding recommended diet textures and strategies. Recommend patient and caregivers to continue monitoring patient?s dysphagia. Contact PCP if there is any worsening of dysphagia, in which case patient may need re-evaluation. Suggested Referrals: The patient might benefit from a referral to: Neurology Indication for Referral: Continued care Therapy Recommendations: Therapy will be continued with one follow-up visit. Prognosis for Improvement: The prognosis for the patient to meet nutritional needs by mouth is excellent based on degree of impairment, stimulability for treatment, support system. Frequency/Duration: 1 f/u Date Range for Service Requested: Timeline to reassess: Senior Living Goals: ? The patient and/or family will participate in further education for swallowing goals. Short Term Goals: ? Diet ? Guidelines - The patient will comply with/recall the following guidelines/strategies 100% of the time with no cuing: Bolus Volume Change, Rate of Ingestion Change, Liquid Wash, Additional Swallow(s) per Bolus. ? Education - The patient, family, caregiver will verbalize/demonstrate understanding of the results of this evaluation, the above recommendations, and the swallowing guidelines. Clinician - Supplemental, Miscellaneous Communication: It is important to note MBSS objective studies are snapshots in time and Patient function might vary with factors such as time of day or concomitant medical conditions. For this reason, the final treatment plan for this patient should rest with their medical care team. Additional recommendations should be considered with the totality of the Patient in mind. Thank for the opportunity to participate in the care of this patient. If you have any questions about the content of this report, please contact the [facility] at [facility]. Education: Education regarding findings from today's study and plans for therapy were provided to Patient and family/caregiver through Verbal Instruction. Understanding was expressed by the Patient and family/caregiver. Level Vial Grinder Clinician/Clinical Fellow: No Supervisory Statement: N/A Speech Language Pathologist: Alley Fernandez M.A., [facility]-SUPERVISOR [employer]
== END 2022-05-30 14:05 | disposition home or self-care (01) ==
LOC: HO.XRAY 14:04
PROVIDERS: Visit Provider Hospitalist
DX: G12.21 Amyotrophic lateral sclerosis (principal); R13.12 Dysphagia, oropharyngeal phase
CPT/HCPCS: 74230; 92611

== ENCOUNTER → 2022-06-19 10:55 | Outpatient (BNVA) | payer MEDICARE, OTHER, SELFPAY | PROVIDERS: PCP Internal Medicine; Visit Provider Hospitalist | DX: G12.21 Amyotrophic lateral sclerosis (principal); J96.11 Chronic respiratory failure with hypoxia; J98.4 Other disorders of lung; G70.9 Myoneural disorder, unspecified | CPT/HCPCS: 94010; 99212 ==

== ENCOUNTER 2022-08-25 12:03 | Emergency (ER) | payer MEDICARE, OTHER, SELFPAY ==
--- NOTE | ~2022-08-25 | XR_ITS ---
EXAMINATION: XR chest 1V CLINICAL INFORMATION: Reason for Exam cardiac arrest, 2 placement, rule out pneumothorax COMPARISON: Chest radiograph 01/16/2022 TECHNIQUE: One view of the chest FINDINGS: Endotracheal tube tip terminates approximately 2.3 cm above the bianca. Pacer pads and EKG leads overlie the chest. Median sternotomy wires and mediastinal surgical clips. Low lung volumes with streaky right greater than left bibasilar airspace opacities favoring atelectasis. No pneumothorax or pleural effusion. Cardiac silhouette is mildly enlarged, stable from prior. XR/XR chest 1V IMPRESSION: * Endotracheal tube tip terminates approximately 2.3 cm above the bianca. No pneumothorax. * Low lung volumes with streaky right greater than left bibasilar airspace opacities favoring atelectasis. * Mildly enlarged cardiac silhouette, unchanged.
[2022-08-25 12:03] VITALS: BMI 27.6
[2022-08-25] MEDS: 0.9 % Sodium Chloride 1,000 ML 999 ML IV (12:08)
--- NOTE | 2022-08-25 12:23 | ECG_ITS ---
Test Reason : REPEAT Blood Pressure : / mmHG Vent. Rate : 074 BPM Atrial Rate : 074 BPM P-R Int : 344 ms QRS Dur : 184 ms QT Int : 454 ms P-R-T Axes : 009 -85 066 degrees QTc Int : 503 ms Undetermined rhythm , possibly idio-ventricular Left axis deviation Right bundle branch block Lateral infarct (cited on or before 25-AUG-2022) Inferior infarct (cited on or before 25-AUG-2022) Abnormal ECG When compared to the previous EKG of sep 12, 2017, significant changes Referred By: Dariel Echavarria Electronically Signed By:COSME MELGAR
[2022-08-25 12:28] VITALS: BP 85/53; PULSE 68; TEMP 32.5; O2SAT 100
--- NOTE | 2022-08-25 12:40 | PC.NURSE ---
1230 - unable to scan epi drip. drip started at 0.5mcg/kg/her per dr. feng.
[2022-08-25 12:51] LABS: Glucose, Whole Blood 151 mg/dL (60-115)
[2022-08-25] MEDS: Midazolam HCl/PF 2 MG/2 ML VIAL 4 MG IVPUSH (12:51)
--- NOTE | 2022-08-25 12:58 | PC.NURSE ---
1203- pt arrive with ems with camilo in place. pt has an et-tube 8.0 @ #26 at the r lip., ivf infusing, ns 250ml bolus given. per ems -ems gave epi x 2. cpr started by family. pt has been sic for 3 days pt wanted to go out today and the family had pt in a w/c and btb when pt became unresponsive and slumped over then his daughter began cpr. ems worked on the pt for approx 35mins. pt was asystole, cpr, v-fib then aystole then rosc (pulse) then pulseless.pt nhas i/o to l tibal 1205- [place] [facility] [place] cam[place] , no pulse, epi x1 given by michelle dobbs. cpr, poc 151, pad placed, cpr continues. 1206 - heplock # 20 to r ac. 1207 - pulse check- no pulse. 1208 - epi x 1 given by michelle dobbs. ns 1l bolus initiated. cpr continues 1210 - pulse check - pulse (carotid) 1212 - vent settings -ac tidal volume 450, peep 8 at 100% 1214 - TEMP SENSING VELASQUEZ CATH PLACED. 1220 - DR. COLON (icu) at bedside 1224 - PT REMAINS WITH A PULSE 1226 - epi drip started at 0.5mcg/kg/hr per er . 1232 - epi drip increased to 0.6mcg/kg/hr 1234 - epi drip increased to 0.7mcg/kg/hr 1240 - pt appears to be moving his r hand and jerking/shaking both leg. 1251 - versed 4mg ivp x [address] colon. 1252 - no shaking/jerking movements noted.
[2022-08-25 13:07] LABS: Hemoglobin 13.2 g/dl (14.0-18.0); Red Cell Distribution Width 13.1 % (11.0-16.0)
--- NOTE | 2022-08-25 13:10 | PC.NURSE ---
pt's and daughter is at bedside.
[2022-08-25 13:13] LABS: Prothrombin Time 11.2 SEC (10.0-13.1)
[2022-08-25 13:14] VITALS: O2SAT 100
[2022-08-25 13:15] LABS: Hematocrit 43.9 % (42.0-52.0); Mean Corpuscular HGB Conc 30.1 g/dl (31.0-36.0); Mean Corpuscular Hemoglobin 30.8 pg (27.0-33.0); Mean Corpuscular Volume 102.6 fL (80.0-98.0); Mean Platelet Volume 11.3 fL (9.4-12.4); NRBC Pct Auto 0.6 /100WBC (0.0-0.2); Platelet Count 180 X10*3/uL (160-400); Red Blood Count 4.28 X10*6/uL (4.60-5.80); White Blood Count 14.2 X10*3/uL (4.8-10.8)
[2022-08-25 13:22] LABS: ABG Base Excess -12.7 mmol/L; ABG HCO3 14 mmol/L (22-26); ABG pCO2 36 mmHg (32-45); ABG pH 7.19 (7.35-7.45); ABG pO2 312 mmHg (83-108)
[2022-08-25 13:36] LABS: B Type Natriuretic Peptide 17 pg/mL (<100)
[2022-08-25 13:37] LABS: Troponin-I High Sensitivity 29.6 ng/L (<3.5-35.0)
[2022-08-25 13:46] VITALS: BP 137/86; PULSE 108; RESP 16; O2SAT 99
[2022-08-25 13:50] LABS: Band Neutrophils Percent 5 % (3-5); Lymphocytes Absolute Manual 4.1 X10*3/uL (1.2-4.9); Lymphocytes Percent Manual 29 % (20-40); Metamyelocytes Absolute 0.6 X10*3/uL; Metamyelocytes Percent 4 %; Monocytes Absolute Manual 0.4 X10*3/uL (0.1-1.2); Monocytes Percent Manual 3 % (2-11); Myelocytes Absolute 0.3 X10*/uL; Myelocytes Percent 2 %; Neutrophils Absolute Manual 8.7 X10*3/uL (2.0-8.3); Neutrophils Percent Manual 56 % (45-73); Promyelocytes Absolute 0.1 X10*3/uL; Promyelocytes Percent 1 %
[2022-08-25 13:51] LABS: Platelet Estimate NORMAL (NORMAL); Platelet Morphology Comment NORMAL; RBC Morphology NORMAL
[2022-08-25 13:59] LABS: ABG Refer to POC result
[2022-08-25 14:04] LABS: Appearance Urine Cloudy; Color Urine Dark Yellow; Glucose Urine UA 500 mg/dL (Negative); Leukocyte Esterase Urine Negative (Negative); Nitrite Urine Negative (Negative); UMIC TRIGGER UACC YES; Urine Blood Large (3+) (Negative); Urine Ketones Trace mg/dL (Negative); Urine Protein >=1000 (4+) mg/dL (Neg-Trace)
--- NOTE | 2022-08-25 14:05 | PC.NURSE ---
1405 - decision to make pt nutrition instructor by family members at bedside (, daughter, son and [id number]). epi drip has been completed and d/c'd per dr. feng. pt is resting comfortably.
[2022-08-25 14:18] LABS: Alanine Aminotransferase 108 U/L (0-40); Albumin Level 3.1 g/dL (3.5-5.0); Alkaline Phosphatase 122 U/L (39-117); Anion Gap 21 (12-20); Aspartate Amino Transferase 118 U/L (5-37); Bilirubin Total 0.4 mg/dL (0.0-1.0); Blood Urea Nitrogen 17 mg/dL (9-16); Calcium 8.2 mg/dL (8.4-10.2); Carbon Dioxide 14 mmol/L (22-29); Chloride 111 mmol/L (96-108); Creatinine Clr Calc Pharmacy 99.2; Estimated Glomerular Filt Rate > 60; Glucose Random 182 mg/dL (60-115); Lipase 31 U/L (8-78); Potassium 4.5 mmol/L (3.3-5.1); Sodium 141 mmol/L (135-145); Total Protein 5.8 g/dL (6.5-8.0)
[2022-08-25 14:21] LABS: Bacteria Urine Trace (None Seen); Granular Casts Urine Present; RBC Urine >20 /HPF (0-2); WBC Urine 0-5 /HPF (0-5)
[2022-08-25] MEDS: Morphine Sulfate 10 MG/ML CARTRIDGE 8 MG IVPUSH (14:23)
--- NOTE | 2022-08-25 14:32 | PC.NURSE ---
1431 - pt 1430.
[2022-08-25 14:35] LABS: Influenza A PCR NEGATIVE (Negative); Influenza B PCR NEGATIVE (Negative); Resp Syncy Virus RNA Qual PCR NEGATIVE (Negative); SARS COV2 PCR INHOUSE NEGATIVE (Negative)
--- NOTE | 2022-08-25 14:44 | PC.NURSE ---
1441 - [facility] was called pt was decline. this rn spoke with maximino. referal number for the case is [phone].
--- NOTE | 2022-08-25 14:53 | PC.NURSE ---
provider states no to the program medical director. pt to go to the morgue.
--- NOTE | 2022-08-25 16:46 | ED_ITS ---
HPI - CPR General Chief Complaint: Cardiac Arrest/CPR Stated Complaint: cardiac arrest Time Seen by Provider: 08/25/22 12:09 Source: family ( patient's and daughter) and EMS Mode of arrival: EMS Limitations: other ( cardiac arrest) History of Present Illness HPI narrative: 71-year-old male with history of ALS who was brought to the emergency department in cardiac arrest. Information was obtained from EMS. Paramedics state that the patient had a witnessed arrest in front of his family and CPR was started by his and daughter. When the paramedics arrived on the scene, the patient was asystolic. his airway was initially a stabilized with an eye gel and an intraosseous line was established. Patient was given multiple rounds of epinephrine and did have a brief ROSC. after the patient had return of spontaneous circulation, the paramedics removed the eye gel and they did intubate him . The state however his rhythm accelerated he went into ventricular tachycardia without pulses. Patient was defibrillated with 220 joules and became asystolic. He was given several more rounds epinephrine and went into pulseless electrical activity. The patient's and daughter were interviewed here in the emergency department by me. They states that the patient has been sick for approximately 3-4 days with an upper respiratory tract infection. today he was feeling weaker but wanted to go out and his put him in a wheelchair. Patient however felt more short of breath and felt worse and when the is willing and back into the bedroom he slumped over and collapsed. He was placed on the floor and the family thought that he was not breathing so they started CPR. The patient does have ALS in sees our profiler Dr. Akhtar and the family and the patient were discussing starting a ventilator to help with respirations. The however did tell me that the patient wanted to be a DNR but given the acute onset of the symptoms, the and daughter did form CPR wanted ACLS to continue. Related Data Home Medications Medication Instructions Recorded Confirmed riluzole 50 mg tablet 100 mg PO ONCE 07/25/20 05/30/22 zolpidem 12.5 mg tablet,extended 12.5 mg PO BEDTIME 09/15/20 05/30/22 release,multiphase acetaminophen 500 mg tablet 500 mg PO Q6H PRN 05/01/21 05/30/22 (Tylenol Extra Strength) mirtazapine 15 mg tablet 15 mg PO BEDTIME 05/01/21 05/30/22 clobetasol 0.05 % topical foam g topical 07/25/21 05/30/22 ketoconazole 2 % shampoo topical 07/25/21 05/30/22 mexiletine 150 mg capsule 150 mg PO TID 07/25/21 05/30/22 potassium chloride 20 mEq 20 meq PO DAILY PRN 07/25/21 05/30/22 tablet,extended release sennosides 8.6 mg capsule (senna) 8.6 mg PO BID 09/25/21 05/30/22 furosemide 20 mg tablet 20 mg PO QAM PRN swelling 10/24/21 05/30/22 tramadol 100 mg tablet 100 mg PO QID 11/21/21 05/30/22 pregabalin 150 mg capsule 150 mg PO TID 01/23/22 05/30/22 atorvastatin 80 mg tablet 40 mg PO DAILY 04/24/22 05/30/22 amlodipine 10 mg tablet 5 mg PO DAILY 06/19/22 baclofen 20 mg tablet 20 mg PO TID muscle spasm 06/19/22 Previous Rx's Medication Instructions Recorded citalopram 40 mg tablet 40 mg PO DAILY #90 tabs 09/12/20 flash glucose scanning reader #1 ea 01/13/21 (FreeStyle Hawk 14 Day Banco) flash glucose sensor (FreeStyle #1 ea 01/13/21 Hawk 14 Day Sensor kit) lancets 28 gauge (FreeStyle See Rx Instructions topical DAILY 02/08/22 Lancets) 100 days #100 ea carbamide peroxide 6.5 % ear drops 10 drp otic (ears) BID 7 days #15 05/30/22 (Debrox) mL metoprolol succinate 50 mg 50 mg PO DAILY #90 tabs 08/23/22 tablet,extended release 24 hr Allergies Allergy/AdvReac Type Severity Reaction Status Date / Time No Known Allergies Allergy Verified 06/19/22 11:12 [No Known Allergies*] [facility] Past Medical History Attestation statement: The following information was validated with the patient. 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 Son No problems noted. Other Mental health problem Social History Social History Housing: House Alcohol intake: never Patient Tobacco Use Status: Never used Tobacco e-Cigarette/Vaping Use: Never Used Second Hand Smoke Exposure: Yes Advance Directives: No Advance Directives Information Provided: No service: No Current occupational status: retired Cognitive needs: Yes (wheelchair) Hearing needs: No Vision needs: Yes (glasses) Physical Exam Vital Signs: Vital Signs: Last Vital Signs Pulse 108 H 08/25/22 13:46 Resp 16 08/25/22 13:46 BP 137/86 08/25/22 13:46 Pulse Ox 99 08/25/22 13:46 O2 Del Method 08/25/22 13:46 FiO2 100 08/25/22 12:28 BMI result Body Mass Index 27.6 General: Very pale-appearing patient, patient was intubated, no spontaneous ventilations except with assist with a bag-valve mask, patient has a Pierre d evice on which is providing CPR HEENT: Normocephalic and atraumatic neck: No bruising lungs: Symmetric breath sounds with bagging heart: No spontaneous heart sounds appreciated abdomen: Obese, appears distended, no bowel sounds extremities: No evidence of trauma neurologic exam: No voluntary movement, does have tonic clonic twitching of his lower extremities Medications Administered Discontinued Medications Generic Name Dose Route Start Last Admin Trade Name Freq PRN Reason Stop Dose Admin Sodium Chloride 1,000 mls @ 999 mls/hr 08/25/22 12:23 08/25/22 13:10 Ns IV 08/25/22 13:23 Infused .Q1H1M STA Infusion Midazolam HCl 4 mg 08/25/22 13:09 08/25/22 12:51 Midazolam Hcl/Pf 2 Mg/2 Ml Vial IVPUSH 08/25/22 13:10 4 mg ONCE ONE Administration Morphine Sulfate 8 mg 08/25/22 14:05 08/25/22 14:23 Morphine Sulfate 10 Mg/Ml Cartridge IVPUSH 08/25/22 14:06 8 mg ONCE ONE Administration Protocol Medical Decision Making Medical Decision Making MDM Narrative: 71-year-old male with a history of ALS with worsening respiratory failure to the point where he was discussing ventilator assistance with his profiler, who was been sick for 3 days with URI type symptoms who presented to the emergency department in cardiac arrest. Patient's initial rhythm was asystole but CPR was started immediately by family. The paramedics were able to achieve short period of return of spontaneous circulation but the patient then went into ventricular tachycardia with no pulses was defibrillated. When the patient presented to the emergency department initially I did not feel a pulse on him. We gave him 2 rounds of epinephrine IV and continued him on the Pierre CPR device. After 2nd round of epinephrine the patient did have return of spontaneous circulation with a good blood pressure. His blood pressure slowly was going down therefore he was started on epinephrine drip. I did discuss the patient's presentation with our package dyer, Dr[facility]. Both Dr. Dumont and I had a discussion with the family and we came to a shared decision that we would keep the patient on the ventilator and on pressors but not add any other treatment and if the patient deteriorated, lost his pulse or went into any arrhythmia we would no longer try to resuscitate him. The patient eventually became bradycardic and then asystolic. The patient was pronounced at 14:30 hours. The patient was extubated by me and the respiratory therapists and the family was in the room with the patient at the time of his . At this time I do not think that this was a suspicious in it was a natural ther efore I did not contact the medical research assistant. Differential Diagnosis Differential diagnosis includes was not limited to respiratory rest causing cardiac arrest, pneumonia, cardiac arrest Consult Healthcare Provider I did consult the package dyer, I discuss the management of this patient with him and Dr. Dumont and he came to the emergency department and evaluated the patient Lab Data My interpretation laboratory data is as follows: WBC elevated 14,200. Coag studies were normal. Chloride high 111, bicarb low 14, BUN elevated 17, anion gap elevated 21, glucose elevated 82, AST, ALT and alk-phos elevated 118, 108, and 12. 2. Troponin was detectable but not elevated at 29.6. Urinalysis was positive for blood, microscopic revealed greater than 20 RBCs but no evidence of infection. COVID-19, RSV and influenza were negative. 08/25/22 13:01 08/25/22 13:52 Labs: Lab Results 08/25/22 08/25/22 08/25/22 Range/Units 12:06 13:01 13:01 WBC 14.2 H (4.8-10.8) X10*3/uL RBC 4.28 L (4.60-5.80) X10*6/uL Hgb 13.2 L (14.0-18.0) g/dl Hct 43.9 (42.0-52.0) % MCV 102.6 H (80.0-98.0) fL MCH 30.8 (27.0-33.0) pg MCHC 30.1 L (31.0-36.0) g/dl RDW 13.1 (11.0-16.0) % Plt Count 180 (160-400) X10*3/uL MPV 11.3 (9.4-12.4) fL Immature Gran % (Auto) Cancelled Neut % (Auto) Cancelled Lymph % (Auto) Cancelled [place] % (Auto) Cancelled Eos % (Auto) Cancelled Baso % (Auto) Cancelled Lymph # (Auto) Cancelled [place] # (Auto) Cancelled Eos # (Auto) Cancelled Baso # (Auto) Cancelled Abs Immat Gran (auto) Cancelled Absolute Neuts (auto) Cancelled Absolute Nucleated RBC 0.080 H (0.0-0.012) X10*3/uL Nucleated RBC % (auto) 0.6 H (0.0-0.2) /100WBC Neutrophils % (Manual) 56 (45-73) % Band Neutrophils % 5 (3-5) % Lymphocytes % (Manual) 29 (20-40) % Monocytes % (Manual) 3 (2-11) % Metamyelocytes % 4 % Myelocytes % 2 % Promyelocytes % 1 % Abs Neuts (Manual) 8.7 H (2.0-8.3) X10*3/uL Lymphocytes # (Manual) 4.1 (1.2-4.9) X10*3/uL Monocytes # (Manual) 0.4 (0.1-1.2) X10*3/uL Metamyelocytes # 0.6 X10*3/uL Myelocytes # 0.3 X10*/uL Promyelocytes # 0.1 X10*3/uL Platelet Estimate NORMAL (NORMAL) Plt Morphology Comment NORMAL RBC Morphology NORMAL PT 11.2 (10.0-13.1) SEC INR 1.0 (0.9-1.1) APTT 36.0 (26.0-36.4) SEC O2 Saturation % ABG pH at Pt Temp (7.35-7.45) ABG pCO2 at Pt Temp (32-45) mmHg ABG pO2 at Pt Temp (83-108) mmHg ABG HCO3 (22-26) mmol/L ABG Base Excess (Actual) mmol/L Sodium (135-145) mmol/L Potassium (3.3-5.1) mmol/L Chloride (96-108) mmol/L Carbon Dioxide (22-29) mmol/L Anion Gap (12-20) BUN (9-16) mg/dL Creatinine (0.5-1.4) mg/dL Estim Creat Clear Calc Estimated GFR POC Glucose 151 H (60-115) mg/dL Random Glucose (60-115) mg/dL Calcium (8.4-10.2) mg/dL Total Bilirubin (0.0-1.0) mg/dL AST (5-37) U/L ALT (0-40) U/L Alkaline Phosphatase (39-117) U/L Total Creatine Kinase (38-174) U/L Troponin I High Sens (<3.5-35.0) ng/L B-Natriuretic Peptide (<100) pg/mL Total Protein (6.5-8.0) g/dL Albumin (3.5-5.0) g/dL Lipase (8-78) U/L Urine Color Urine Appearance Urine pH (5.0-9.0) Ur Specific [place] (1.005-1.025) Urine Protein (Neg-Trace) mg/dL Urine Glucose (UA) (Negative) mg/dL Urine Ketones (Negative) mg/dL Urine Blood (Negative) Urine Nitrite (Negative) Ur Leukocyte Esterase (Negative) Urine RBC (0-2) /HPF Urine WBC (0-5) /HPF Ur Squamous Epith Cells (0-2) /HPF Urine Bacteria (None Seen) Hyaline Casts (0-2) /LPF Granular Casts Influenza Type A (PCR) (Negative) Influenza Type B (PCR) (Negative) RSV RNA Qual (PCR) (Negative) SARS-CoV-2 RNA (RT-PCR) (Negative) 08/25/22 08/25/22 08/25/22 Range/Units 13:01 13:01 13:14 WBC (4.8-10.8) X10*3/uL RBC (4.60-5.80) X10*6/uL Hgb (14.0-18.0) g/dl Hct (42.0-52.0) % MCV (80.0-98.0) fL MCH (27.0-33.0) pg MCHC (31.0-36.0) g/dl RDW (11.0-16.0) % Plt Count (160-400) X10*3/uL MPV (9.4-12.4) fL Immature Gran % (Auto) Neut % (Auto) Lymph % (Auto) [place] % (Auto) Eos % (Auto) Baso % (Auto) Lymph # (Auto) [place] # (Auto) Eos # (Auto) Baso # (Auto) Abs Immat Gran (auto) Absolute Neuts (auto) Absolute Nucleated RBC (0.0-0.012) X10*3/uL Nucleated RBC % (auto) (0.0-0.2) /100WBC Neutrophils % (Manual) (45-73) % Band Neutrophils % (3-5) % Lymphocytes % (Manual) (20-40) % Monocytes % (Manual) (2-11) % Metamyelocytes % % Myelocytes % % Promyelocytes % % Abs Neuts (Manual) (2.0-8.3) X10*3/uL Lymphocytes # (Manual) (1.2-4.9) X10*3/uL Monocytes # (Manual) (0.1-1.2) X10*3/uL Metamyelocytes # X10*3/uL Myelocytes # X10*/uL Promyelocytes # X10*3/uL Platelet Estimate (NORMAL) Plt Morphology Comment RBC Morphology PT (10.0-13.1) SEC INR (0.9-1.1) APTT (26.0-36.4) SEC O2 Saturation 99.0 % ABG pH at Pt Temp 7.19 L* (7.35-7.45) ABG pCO2 at Pt Temp 36 (32-45) mmHg ABG pO2 at Pt Temp 312 H (83-108) mmHg ABG HCO3 14 L (22-26) mmol/L ABG Base Excess (Actual) -12.7 mmol/L Sodium (135-145) mmol/L Potassium (3.3-5.1) mmol/L Chloride (96-108) mmol/L Carbon Dioxide (22-29) mmol/L Anion Gap (12-20) BUN (9-16) mg/dL Creatinine (0.5-1.4) mg/dL Estim Creat Clear Calc Estimated GFR POC Glucose (60-115) mg/dL Random Glucose (60-115) mg/dL Calcium (8.4-10.2) mg/dL Total Bilirubin (0.0-1.0) mg/dL AST (5-37) U/L ALT (0-40) U/L Alkaline Phosphatase (39-117) U/L Total Creatine Kinase (38-174) U/L Troponin I High Sens 29.6 (<3.5-35.0) ng/L B-Natriuretic Peptide 17 (<100) pg/mL Total Protein (6.5-8.0) g/dL Albumin (3.5-5.0) g/dL Lipase (8-78) U/L Urine Color Urine Appearance Urine pH (5.0-9.0) Ur Specific [place] (1.005-1.025) Urine Protein (Neg-Trace) mg/dL Urine Glucose (UA) (Negative) mg/dL Urine Ketones (Negative) mg/dL Urine Blood (Negative) Urine Nitrite (Negative) Ur Leukocyte Esterase (Negative) Urine RBC (0-2) /HPF Urine WBC (0-5) /HPF Ur Squamous Epith Cells (0-2) /HPF Urine Bacteria (None Seen) Hyaline Casts (0-2) /LPF Granular Casts Influenza Type A (PCR) (Negative) Influenza Type B (PCR) (Negative) RSV RNA Qual (PCR) (Negative) SARS-CoV-2 RNA (RT-PCR) (Negative) 08/25/22 08/25/22 08/25/22 Range/Units 13:52 13:52 13:53 WBC (4.8-10.8) X10*3/uL RBC (4.60-5.80) X10*6/uL Hgb (14.0-18.0) g/dl Hct (42.0-52.0) % MCV (80.0-98.0) fL MCH (27.0-33.0) pg MCHC (31.0-36.0) g/dl RDW (11.0-16.0) % Plt Count (160-400) X10*3/uL MPV (9.4-12.4) fL Immature Gran % (Auto) Neut % (Auto) Lymph % (Auto) [place] % (Auto) Eos % (Auto) Baso % (Auto) Lymph # (Auto) [place] # (Auto) Eos # (Auto) Baso # (Auto) Abs Immat Gran (auto) Absolute Neuts (auto) Absolute Nucleated RBC (0.0-0.012) X10*3/uL Nucleated RBC % (auto) (0.0-0.2) /100WBC Neutrophils % (Manual) (45-73) % Band Neutrophils % (3-5) % Lymphocytes % (Manual) (20-40) % Monocytes % (Manual) (2-11) % Metamyelocytes % % Myelocytes % % Promyelocytes % % Abs Neuts (Manual) (2.0-8.3) X10*3/uL Lymphocytes # (Manual) (1.2-4.9) X10*3/uL Monocytes # (Manual) (0.1-1.2) X10*3/uL Metamyelocytes # X10*3/uL Myelocytes # X10*/uL Promyelocytes # X10*3/uL Platelet Estimate (NORMAL) Plt Morphology Comment RBC Morphology PT (10.0-13.1) SEC INR (0.9-1.1) APTT (26.0-36.4) SEC O2 Saturation % ABG pH at Pt Temp (7.35-7.45) ABG pCO2 at Pt Temp (32-45) mmHg ABG pO2 at Pt Temp (83-108) mmHg ABG HCO3 (22-26) mmol/L ABG Base Excess (Actual) mmol/L Sodium 141 (135-145) mmol/L Potassium 4.5 (3.3-5.1) mmol/L Chloride 111 H (96-108) mmol/L Carbon Dioxide 14 L (22-29) mmol/L Anion Gap 21 H (12-20) BUN 17 H (9-16) mg/dL Creatinine 0.76 (0.5-1.4) mg/dL Estim Creat Clear Calc 99.2 Estimated GFR > 60 POC Glucose (60-115) mg/dL Random Glucose 182 H (60-115) mg/dL Calcium 8.2 L D (8.4-10.2) mg/dL Total Bilirubin 0.4 (0.0-1.0) mg/dL AST 118 H (5-37) U/L ALT 108 H (0-40) U/L Alkaline Phosphatase 122 H (39-117) U/L Total Creatine Kinase 105 (38-174) U/L Troponin I High Sens (<3.5-35.0) ng/L B-Natriuretic Peptide (<100) pg/mL Total Protein 5.8 L (6.5-8.0) g/dL Albumin 3.1 L (3.5-5.0) g/dL Lipase 31 (8-78) U/L Urine Color Dark Yellow Urine Appearance Cloudy Urine pH 6.0 (5.0-9.0) Ur Specific [place] 1.020 (1.005-1.025) Urine Protein >=1000 (4+) H (Neg-Trace) mg/dL Urine Glucose (UA) 500 H (Negative) mg/dL Urine Ketones Trace (Negative) mg/dL Urine Blood Large (3+) H (Negative) Urine Nitrite Negative (Negative) Ur Leukocyte Esterase Negative (Negative) Urine RBC >20 H (0-2) /HPF Urine WBC 0-5 (0-5) /HPF Ur Squamous Epith Cells 3-5 (0-2) /HPF Urine Bacteria Trace (None Seen) Hyaline Casts 11-20 (0-2) /LPF Granular Casts Present Influenza Type A (PCR) NEGATIVE (Negative) Influenza Type B (PCR) NEGATIVE (Negative) RSV RNA Qual (PCR) NEGATIVE (Negative) SARS-CoV-2 RNA (RT-PCR) NEGATIVE (Negative) ABG Data Attestation ABG: I personally reviewed and interpreted this ABG as follows: Interpretation: the patient has a low pH with a normal CO2 which is consistent with a metabolic acidosis secondary to his Independent Interpretation I performed an independent interpretation of an: EKG and Plain X-Ray Interpretation: My interpretation of the patient's EKG wide complex rhythm with the right bundle giovanni block rate of 80 my interpretation of the one-view x-ray was that the tip of the endotracheal tube was just after bianca he has to be pulled back 2 cm Radiology Impression Discussion of test interpretation with radiology: I have reviewed the radiologist's reading. Radiologist Impression: XR/XR chest 1V IMPRESSION: ? *? Endotracheal tube tip terminates approximately 2.3 cm above the bianca. No pneumothorax. ? *? Low lung volumes with streaky right greater than left bibasilar airspace opacities favoring atelectasis. ? *? Mildly enlarged cardiac silhouette, unchanged. Dictated By: Beata Vazquez MD Signed By:<Electronically signed by Beata Vazquez MD in 08/25/22 1322 Independent Historian Clinical information obtained from an independent historian. History obtained from or confirmed by: Spouse ( and daughter) Critical Care Time Critical Care Time Critical Care Time: Yes Total Critical Care Time: 80 Attestation: Critical Care: The patient was critically ill with a high probability of imminent or life threatening deterioration. I spent greater than 30 minutes of discontinuous time evaluating the patient,delivering critical care at the bedside, discussing and evaluating pertinent data with consultants. Critical care time does not include time spent performing separately billable procedures or teaching. Total time spent performing critical care was 80 minutes. Discharge Plan Discharge Clinical Impression: Cardiac arrest, Acute respiratory failure, Cardiac arrest due to respiratory disorder Patient Disposition: Prescriptions: No Action citalopram 40 mg tablet 40 mg PO DAILY Qty: 90 1RF zolpidem 12.5 mg tablet,ext release multiphase 12.5 mg PO BEDTIME lancets [FreeStyle Lancets] 28 gauge misc See Rx Instructions topical DAILY 100 Days Qty: 100 12RF Rx Instructions: use once daily as directed topical daily; metoprolol succinate 50 mg tablet extended release 24 hr 50 mg PO DAILY Qty: 90 0RF mexiletine 150 mg capsule 150 mg PO TID (DME) FreeStyle Hawk 14 Day Banco Misc See Rx Instructions .ROUTE .MEDSUPPLY Qty: 1 5RF Rx Instructions: As directed (DME) FreeStyle [place] 14 Day Sensor Kit See Rx Instructions .ROUTE .MEDSUPPLY Qty: 1 0RF Rx Instructions: As directed senna 8.6 mg capsule 8.6 mg PO BID Debrox 6.5 % drops 10 drp otic (ears) BID 7 Days Qty: 15 0RF riluzole 50 mg tablet 100 mg PO ONCE Rx Instructions: must be taken on empty stomach; no food 1 hr after or 2-3 hrs before dose potassium chloride 20 mEq tablet extended release 20 meq PO DAILY PRN clobetasol 0.05 % foam topical ketoconazole 2 % shampoo topical tramadol 100 mg tablet 100 mg PO QID mirtazapine 15 mg tablet 15 mg PO BEDTIME acetaminophen [Tylenol Extra Strength] 500 mg tablet 500 mg PO Q6H PRN pregabalin 150 mg capsule 150 mg PO TID baclofen 20 mg tablet 20 mg PO TID atorvastatin 80 mg tablet 40 mg PO DAILY furosemide 20 mg tablet 20 mg PO QAM PRN (Reason: swelling) amlodipine 10 mg tablet 5 mg PO DAILY Discharge Date/Time: 08/25/22 16:30
== END 2022-08-25 16:30 | disposition expired ==
LOC: HO.ED 13:04
PROVIDERS: Emergency Provider Emergency Medicine Emergency Medical Services; PCP Internal Medicine
DX: J96.00 Acute respiratory failure, unspecified whether with hypoxia or hypercapnia (principal); I46.8 Cardiac arrest due to other underlying condition; J06.9 Acute upper respiratory infection, unspecified; E11.9 Type 2 diabetes mellitus without complications; I10 Essential (primary) hypertension; G12.21 Amyotrophic lateral sclerosis; E78.00 Pure hypercholesterolemia, unspecified; F41.9 Anxiety disorder, unspecified; G47.00 Insomnia, unspecified; Z95.1 Presence of aortocoronary bypass graft; Z20.822 Contact with and (suspected) exposure to COVID-19; Z20.828 Contact with and (suspected) exposure to other viral communicable diseases; Z79.02 Long term (current) use of antithrombotics/antiplatelets; Z79.899 Other long term (current) drug therapy
CPT/HCPCS: 0241U; 31500; 36415; 71045; 80053; 81001; 81003; 82550; 82803; 82947; 83690; 83880; 84484; 85007; 85027; 85610; 85730; 93005; 94002; 96361; 96374; 96375; 99284; 99285; J0171; J2250; J2270